=== PATIENT | male | born 1990 | race African-American/Black ===

== ENCOUNTER 2017-01-22 22:38 | Emergency (ER) | payer MEDICAID ==
[~2017-01-22] VITALS: Ht 190.5 cm; Wt 136.0 kg
[~2017-01-22 22:38] MED LIST: PENI250T2 PO
[2017-01-23] MEDS ORDERED: KETOROLAC 60MG/2ML VIAL IM ONE (03:00)
[2017-01-23 04:53] VITALS: BP 137/83
== END 2017-01-23 04:54 | disposition home or self-care (01) ==
LOC: ER 23:50
DX: M79.671 Pain in right foot (principal); M10.9 Gout, unspecified; F17.210 Nicotine dependence, cigarettes, uncomplicated
CPT/HCPCS: 73630; 96372; 99284; J1885; Z7610

== ENCOUNTER 2017-04-16 16:10 | Emergency (ER) | payer MEDICAID ==
[~2017-04-16] VITALS: Ht 190.5 cm; Wt 136.0 kg
[2017-04-16 16:41] VITALS: BP 132/81
== END 2017-04-16 17:38 | disposition home or self-care (01) ==
LOC: ER 16:10
DX: Z76.0 Encounter for issue of repeat prescription (principal); M10.9 Gout, unspecified
CPT/HCPCS: 99283

== ENCOUNTER 2017-09-28 19:05 | Emergency (ER) | payer MEDICAID ==
[~2017-09-28] VITALS: Ht 190.5 cm; Wt 138.0 kg
[2017-09-28 20:47] LABS: BASOPHILS % 0.5 % (0.0-2.0); EOSINOPHILS % 1.9 % (0.0-5.0); HEMATOCRIT. 43.3 % (42.0-52.0); HEMOGLOBIN. 15.1 g/dL (14.0-18.0); LYMPHOCYTES % 53.2 % (20.0-50.0); MEAN CORPUSCULAR HEMOGLOBIN 31.5 pg (28.0-32.0); MEAN CORPUSCULAR VOLUME 90.4 fL (80.0-94.0); MEAN PLATELET VOLUME 7.8 fl (7.4-10.4); MONOCYTES % 7.5 % (2.0-8.0); NEUTROPHILS % 36.9 % (40.0-76.0); PLATELET 249 x1000/uL (130-400); RED BLOOD CELL COUNT 4.79 mill/uL (4.7-6.1); RED CELL DISTRIBUTION WIDTH 14.4 % (11.6-14.6)
[2017-09-28 20:51] LABS: CHLORIDE 106 mEq/L (98-107); PROTHROMBIN TIME 10.4 sec (9.4-11.6)
[2017-09-28] MEDS ORDERED: PREDNISONE 20MG TABLET PO ONE (21:45)
[2017-09-28] MEDS ORDERED: ACYCLOVIR 400 MG TABLET PO ONE (21:45)
[2017-09-28 22:24] VITALS: BP 126/92
== END 2017-09-28 23:20 | disposition home or self-care (01) ==
LOC: ER 19:43
DX: G51.0 Bell's palsy (principal); F17.200 Nicotine dependence, unspecified, uncomplicated; F12.10 Cannabis abuse, uncomplicated; M10.9 Gout, unspecified; Z86.711 Personal history of pulmonary embolism
CPT/HCPCS: 36415; 70450; 80053; 85025; 85610; 99285; J7512

== ENCOUNTER 2018-02-17 05:31 | Emergency (ER) | payer MEDICAID ==
[~2018-02-17] VITALS: Ht 193 cm; Wt 131.0 kg
[2018-02-17] MEDS ORDERED: ACETAMINOPHEN 325MG TABLET PO ONE (07:15)
[2018-02-17 07:42] VITALS: BP 117/67
== END 2018-02-17 09:44 | disposition home or self-care (01) ==
LOC: ER 05:50
DX: S80.02XA Contusion of left knee, initial encounter (principal); V47.5XXA Car driver injured in collision with fixed or stationary object in traffic accident, initial encounter; W22.11XA Striking against or struck by driver side automobile airbag, initial encounter; R07.89 Other chest pain; Y93.89 Activity, other specified; Y92.410 Unspecified street and highway as the place of occurrence of the external cause; F12.90 Cannabis use, unspecified, uncomplicated; R03.0 Elevated blood-pressure reading, without diagnosis of hypertension
CPT/HCPCS: 71045; 73560; 93005; 99284; Z7610

== ENCOUNTER 2018-02-27 12:52 | Emergency (ER) | payer MEDICAID ==
[~2018-02-27] VITALS: Ht 193 cm; Wt 134.0 kg
[2018-02-27 19:33] VITALS: BP 130/76
== END 2018-02-27 19:34 | disposition home or self-care (01) ==
LOC: ER 15:14
DX: M76.62 Achilles tendinitis, left leg (principal); M10.9 Gout, unspecified
CPT/HCPCS: 73630; 99284; Z7610

== ENCOUNTER 2018-07-11 19:23 | Emergency (ER) | payer MEDICAID ==
[~2018-07-11] VITALS: Ht 190.5 cm; Wt 134.0 kg
[2018-07-11] MEDS ORDERED: ONDANSETRON HCL 4MG/2ML INJ IV STA (23:56)
[2018-07-11] MEDS ORDERED: MORPHINE SULFATE 4 MG/ML CPJ (NOT FOR IM USE) IV STA (23:56)
[2018-07-12] MEDS ORDERED: PANTOPRAZOLE SODIUM 40 MG/VIAL IV ONE
[2018-07-12 00:12] LABS: HEMATOCRIT. 47.6 % (42.0-52.0); HEMOGLOBIN. 16.2 g/dL (14.0-18.0); MEAN CORPUSCULAR HEMOGLOBIN 30.9 pg (28.0-32.0); MEAN CORPUSCULAR VOLUME 90.4 fL (80.0-94.0); MEAN PLATELET VOLUME 7.9 fl (7.4-10.4); PLATELET 233 x1000/uL (130-400); RED BLOOD CELL COUNT 5.26 mill/uL (4.7-6.1); RED CELL DISTRIBUTION WIDTH 14.2 % (11.6-14.6)
[2018-07-12 00:17] LABS: CHLORIDE 104 mEq/L (98-107)
[2018-07-12 00:22] LABS: PARTIAL THROMBOPLASTIN TIME 31.6 sec (23.4-31.0); PROTHROMBIN TIME 10.4 sec (9.1-11.1)
[2018-07-12] MEDS ORDERED: ASPIRIN 81MG TABLET PO ONE (03:15)
[2018-07-12] MEDS ORDERED: ACETAMINOPHEN 325MG TABLET PO PRN (03:15)
[2018-07-12] MEDS ORDERED: IOHEXOL-350 100 ML BOTTLE ONE ×2 (03:35→07:34)
[2018-07-12 04:49] LABS: ATYPICAL LYMPHOCYTES 2; PLATELET ESTIMATE NORMAL
[2018-07-12] MEDS ORDERED: HYDROCODONE/ACETAMINOPHEN 5/325MG TABLET PO PRN (09:30)
[2018-07-12] MEDS ORDERED: ONDANSETRON HCL 4MG/2ML INJ IV PRN (09:30)
[2018-07-12 10:40] LABS: HEMOGLOBIN 16.4 g/dL (14.0-18.0)
[2018-07-12 10:54] LABS: HDL CHOLESTEROL 26 mg/dL (40-59)
[2018-07-12 10:55] LABS: LDL CHOLESTEROL 98 mg/dL (5-100)
[2018-07-12] MEDS ORDERED: PANTOPRAZOLE SODIUM 40 MG/VIAL IV SCH ×2 (17:00→18:15)
[2018-07-12 18:03] VITALS: BP 112/82
[2018-07-12] MEDS ORDERED: HEMORRHOIDAL SUPP PR SCH ×2 (21:00→21:15)
== END 2018-07-12 18:13 | disposition home or self-care (01) ==
LOC: ER 19:23 → EDBEDREQTM 07-12 03:17 → EDBEDREQ 07-12 03:17 → ENRESERV 07-12 15:20 → CANRESERV 07-12 15:20 → ER 07-12 18:13 → CANBEDREQ 07-12 23:30
DX: R07.89 Other chest pain (principal); R06.00 Dyspnea, unspecified; K62.5 Hemorrhage of anus and rectum; K64.9 Unspecified hemorrhoids; R19.7 Diarrhea, unspecified; M10.9 Gout, unspecified; F12.90 Cannabis use, unspecified, uncomplicated; Z86.711 Personal history of pulmonary embolism; Z79.01 Long term (current) use of anticoagulants; E66.9 Obesity, unspecified; Z68.28 Body mass index [BMI] 28.0-28.9, adult; Z71.3 Dietary counseling and surveillance
CPT/HCPCS: 36415; 71045; 71275; 78582; 80053; 80061; 83690; 83880; 84443; 84484; 85014; 85018; 85025; 85379; 85610; 85730; 93005; 93970; 96374; 96375; 99285; A9540; A9558; C9113; J2270; J2405; Q9967; Z7610

== ENCOUNTER 2019-02-01 03:01 | Emergency (ER) | payer MEDICAID ==
[~2019-02-01] VITALS: Ht 193 cm; Wt 90.0 kg
[2019-02-01] MEDS ORDERED: KETOROLAC 30MG/ML VIAL IV STA (03:52)
[2019-02-01 05:25] VITALS: BP 128/70
== END 2019-02-01 05:43 | disposition home or self-care (01) ==
LOC: ER 03:01
DX: M79.604 Pain in right leg (principal); F17.200 Nicotine dependence, unspecified, uncomplicated; F12.10 Cannabis abuse, uncomplicated; M10.9 Gout, unspecified; Z86.711 Personal history of pulmonary embolism
CPT/HCPCS: 93971; 96374; 99284; J1885

== ENCOUNTER 2019-04-06 05:05 | Emergency (ER) | payer MEDICAID ==
[~2019-04-06] VITALS: Ht 193 cm; Wt 132.0 kg
[2019-04-06 07:44] VITALS: BP 153/96
[2019-04-06] MEDS ORDERED: KETOROLAC 60MG/2ML VIAL IM ONE (07:45)
== END 2019-04-06 08:06 | disposition home or self-care (01) ==
LOC: ER 05:05
DX: S39.012A Strain of muscle, fascia and tendon of lower back, initial encounter (principal); S16.1XXA Strain of muscle, fascia and tendon at neck level, initial encounter; R51 Headache; V49.49XA Driver injured in collision with other motor vehicles in traffic accident, initial encounter; Y93.89 Activity, other specified; Y92.89 Other specified places as the place of occurrence of the external cause; R03.0 Elevated blood-pressure reading, without diagnosis of hypertension
CPT/HCPCS: 96372; 99283; J1885

== ENCOUNTER 2019-11-26 13:51 | Emergency (ER) | payer MEDICAID ==
[~2019-11-26] VITALS: Ht 193 cm; Wt 124.0 kg
[2019-11-26 14:26] VITALS: BP 137/79
== END 2019-11-26 16:38 | disposition home or self-care (01) ==
LOC: ER 13:51
DX: L21.9 Seborrheic dermatitis, unspecified (principal); L03.90 Cellulitis, unspecified; N48.1 Balanitis; B35.3 Tinea pedis; F12.10 Cannabis abuse, uncomplicated
CPT/HCPCS: 99283

== ENCOUNTER 2020-09-23 22:59 | Emergency (ER) | payer MEDICAID ==
[~2020-09-23] VITALS: Ht 193 cm; Wt 123.0 kg
[2020-09-24] MEDS ORDERED: KETOROLAC 60MG/2ML VIAL IM STA (01:04)
[2020-09-24] MEDS ORDERED: TRAM50TA3 PO (02:40)
[2020-09-24] MEDS ORDERED: NAPR-681 PO (02:40)
[2020-09-24] MEDS ORDERED: CLOT113C TP (02:40)
[2020-09-24 03:20] VITALS: BP 137/76
== END 2020-09-24 03:23 | disposition home or self-care (01) ==
LOC: ER 22:59
DX: M72.2 Plantar fascial fibromatosis (principal); B35.3 Tinea pedis
CPT/HCPCS: 73630; 96372; 99283; J1885; Z7610